=== PATIENT | male | born 1970 | race Caucasian/White ===

== ENCOUNTER → 2016-12-07 | Outpatient (CLI) | payer OTHER ==
--- NOTE | 2016-12-07 15:01 | DIAGNOSTIC IMAGING REPORT ---
RIGHT KNEE 1 OR 2 VIEWS ROUTINE CLINICAL HISTORY: 46 years-old Male presenting with Right knee pain, history of injury more than 20 years ago. TECHNIQUE: Frontal and lateral views of the right knee were obtained. COMPARISON: None. FINDINGS: No acute fracture or malalignment. Osteophytosis most prominent in the lateral compartment. No significant joint space loss. Suggestion of irregularity of the articular surface along the femoral condyles, which could be compatible with the given history of remote injury. Knee effusion may be present. IMPRESSION: No acute osseous injury. Degenerative changes most prominently in the lateral compartment. Suggestion of post traumatic deformity of the articular surface of the femoral condyles. Electronically signed by: Chucho Landaverde M.D. 12/07/2016 3:00 PM Dictated Date/Time: 12/07/2016 2:59 PM
== END | disposition home or self-care (01) ==
LOC: C.RADPV 14:45
PROVIDERS: ATTEND Neuromusculoskeletal Medicine & OMM
DX: M25.561 Pain in right knee (principal)

== ENCOUNTER → 2016-12-08 | Outpatient (CLI) | payer OTHER ==
[2016-12-08 13:29] LABS: ALKALINE PHOSPHATASE 57 U/L (45-117); ALT/SGPT 46 U/L (12-78); AST/SGOT 33 U/L (15-37); BLOOD UREA NITROGEN 18 mg/dl (7-18); BUN/CREATININE RATIO 13.2 (10-20); CALCIUM 9.1 mg/dl (8.5-10.1); CARBON DIOXIDE 29 mmol/L (21-32); CHLORIDE 105 mmol/L (98-107); GLUCOSE 104 mg/dl (70-99); POTASSIUM 4.2 mmol/L (3.5-5.1); SODIUM 139 mmol/L (136-145)
[2016-12-08 13:34] LABS: CHOLESTEROL 205 mg/dl (0-200); CHOLESTEROL/HDL RATIO 3.7; HDL CHOLESTEROL 55 mg/dl; LDL CHOLESTEROL CALCULATED 129 mg/dl; TRIGLYCERIDES 104 mg/dl (0-150); VERY LOW DENSITY LIPOPROT CALC 21 mg/dl
== END | disposition home or self-care (01) ==
LOC: C.LABPVFM 08:06
PROVIDERS: ATTEND Neuromusculoskeletal Medicine & OMM
DX: Z00.00 Encounter for general adult medical examination without abnormal findings (principal)

== ENCOUNTER → 2017-06-07 | Outpatient (CLI) | payer OTHER ==
[2017-06-07 17:26] LABS: HEMATOCRIT 44.6 % (42-52); MEAN CELL VOLUME 90.1 fL (80-100); MEAN CORPUSCULAR HEMOGLOBIN 32.3 pg (25-34); MEAN CORPUSCULAR HGB CONC 35.9 g/dl (32-36); MEAN PLATELET VOLUME 9.1 fL (7.4-10.4); PLATELET COUNT 225 K/uL (130-400); RED CELL DISTRIBUTION WIDTH CV 12.4 % (11.5-14.5); RED CELL DISTRIBUTION WIDTH SD 40.6 fL (36.4-46.3); WHITE BLOOD COUNT 5.45 K/uL (4.8-10.8)
[2017-06-07 18:11] LABS: ALT/SGPT 47 U/L (12-78); BLOOD UREA NITROGEN 18 mg/dl (7-18); CALCIUM 9.1 mg/dl (8.5-10.1); CARBON DIOXIDE 30 mmol/L (21-32); CREATININE 1.32 mg/dl (0.60-1.40); GLUCOSE 91 mg/dl (70-99); POTASSIUM 4.1 mmol/L (3.5-5.1); SODIUM 137 mmol/L (136-145)
[2017-06-07 18:21] LABS: ALKALINE PHOSPHATASE 53 U/L (45-117); AST/SGOT 39 U/L (15-37); TOTAL PROTEIN 7.4 gm/dl (6.4-8.2)
[2017-06-08 06:50] LABS: HEMOGLOBIN A1C 5.3 % (4.5-5.6)
== END | disposition home or self-care (01) ==
LOC: C.LABPVFM 14:52
PROVIDERS: ATTEND Family Medicine
DX: H53.8 Other visual disturbances (principal)